=== PATIENT | male | born 1980 | race Caucasian/White ===

== ENCOUNTER → 2020-09-01 | Outpatient (CLI) | payer BC ==
--- NOTE | 2020-09-02 11:10 | MRI ---
EXAM DESCRIPTION: Cervical Spine: MRI. CLINICAL HISTORY: 40 years Male CERVICALGIA COMPARISON: None. TECHNIQUE: Multiplanar, high-field MRI, multiple sequences, non-contrast Cervical spine. FINDINGS: C3-C4: Normal signal in the disc with disc space preserved. Uncinate spur on the left. Bilateral facet joints unremarkable. Left neural foraminal stenosis. Canal and right neuroforamen are patent. C4-C5: Disc space preserved with normal signal in the disc. Tiny posterior midline bulge. Mild canal narrowing. Facet joints are negative. Bilateral neural foramina are patent. C5-C6: Normal signal in the disc with posterior midline small protrusion abutting the midline cord and just to the left of midline. Borderline mild left paracentral canal stenosis. Bilateral facet joints are negative. Bilateral neural foramina are patent. C6-C7: Disc desiccation and minimal disc space loss. Schmorl's node superior C7 endplate. Right uncinate spur. Right paracentral disc protrusion impressing on the right C7 nerve and the right ventral cord with right paracentral moderate canal stenosis. Disc is experiencing approximately 7 mm below the endplate. Bilateral facet joints are negative. Mild narrowing right neural foramen and left neuroforamen patent. Normal signal in the C2-C3 disc, C7-T1 disc, and T1-T2 disc with no bulging. Disc spaces preserved. Canal and neural foramina are patent. Facet joints are negative. Spinal alignment C4-C6 kyphosis. No cord compression or cord edema. Atlantoaxial joint unremarkable. Base of the cerebellar tonsils is at the level of the foramen magnum. Paravertebral soft tissues are negative. Vertebral bodies are not compressed at any level. Normal marrow signal in the remaining vertebral bodies and the posterior elements. IMPRESSION: 1. Multiple levels of unilateral uncinate spurs with significant encroachment on the canal and neuroforamina. 2. Left uncinate spur at C3-4 with left neural foraminal stenosis. Correlate for left C4 radiculopathy. 3. Small posterior left paracentral protrusion of the C5-C6 disc with mild left paracentral canal stenosis. 4. Right uncinate spur at C6-C7 and right posterior disc protrusion and inferior extrusion impinging the right C7 nerve. Moderate right neural foraminal narrowing and right paracentral mild to moderate canal stenosis. 5. Please refer to FINDINGS for discussion of results at other disc space levels. Electronically signed by: Ponce Carter MD 09/02/2020 11:09 AM CDT
== END ==
LOC: MRI 10:17
PROVIDERS: ATTEND Family Medicine
DX: M50.20 Other cervical disc displacement, unspecified cervical region (principal); M25.78 Osteophyte, vertebrae; M48.02 Spinal stenosis, cervical region